=== PATIENT | male | born 1980 | race Caucasian/White ===

== ENCOUNTER 2017-08-19 23:14 | Emergency (ER) | payer OTHER ==
[~2017-08-19] VITALS: Ht 157.5 cm; Wt 64.0 kg
[2017-08-19 23:25] VITALS: BP 127/83; Ht 157.5 cm; Wt 64.0 kg
== END 2017-08-20 00:52 | disposition home or self-care (01) ==
LOC: ED 23:14
DX: S42.002A Fracture of unspecified part of left clavicle, initial encounter for closed fracture (principal); Z88.0 Allergy status to penicillin; Y93.66 Activity, soccer; Y92.89 Other specified places as the place of occurrence of the external cause; Y99.8 Other external cause status
CPT/HCPCS: J1885